=== PATIENT | female | born 1990 | race Caucasian/White ===

== ENCOUNTER 2018-07-04 20:21 | Emergency (ER) | payer MEDICAID ==
[2018-07-04 22:20] LABS: CHLORIDE,CL 108 mmol/L (98-107); SODIUM,NA 140 mmol/L (136-145)
--- NOTE | 2018-07-04 22:48 | EDM.PDOC ---
ED HPI GENERAL MEDICAL PROBLEM - General Chief Complaint: Abdominal Pain Stated Complaint: CHEST AND STOMACH PAIN Time Seen by Provider: 07/04/18 22:47 Source of Information: Reports: Patient History Limitations: Reports: No Limitations - History of Present Illness INITIAL COMMENTS - FREE TEXT/NARRATIVE: HISTORY AND PHYSICAL: History of present illness: 27-year-old female presenting MRSA department with chief complaint of right upper quadrant pain starting this evening. Patient states that after dinner tonight around 5:30 she began to have some heartburn as well as right upper quadrant pain. "Feels like a balloon is under my right rib cage". She's had this pain before. She recently had a right upper quadrant ultrasound secondary to gallbladder issues. Her first initial symptoms started approximately 2 weeks ago. She denies any fever but does felt some chills. She reports some nausea but no vomiting. She denies cough, sore throat, chest pain, palpitations, shortness of breath, single episodes, focal neurologic deficits. On exam patient is acutely tender in the right upper quadrant. Review of systems: As per history of present illness and below otherwise all systems reviewed and negative. Past medical history: As per history of present illness and as reviewed below otherwise noncontributory. Surgical history: As per history of present illness and as reviewed below otherwise noncontributory. Social history: No reported history of drug or alcohol abuse. Family history: As per history of present illness and as reviewed below otherwise noncontributory. Physical exam: HEENT: Atraumatic, normocephalic, pupils reactive, negative for conjunctival pallor or scleral icterus, mucous membranes moist, throat clear, neck supple, nontender, trachea midline. Lungs: Clear to auscultation, breath sounds equal bilaterally, chest nontender. Heart: S1S2, regular, negative for clicks, rubs, or JVD. Abdomen: Soft, nondistended, right upper quadrant pain. Negative for masses or hepatosplenomegaly. Negative for costovertebral tenderness. Pelvis: Stable nontender. Genitourinary: Deferred. Rectal: Deferred. Extremities: Atraumatic, negative for cords or calf pain. Neurovascular unremarkable. Neuro: Awake, alert, oriented. Cranial nerves II through XII unremarkable. Cerebellum unremarkable. Motor and sensory unremarkable throughout. Exam nonfocal. Diagnostics: CBC, CMP, UA/UC, CT abdomen pelvis Therapeutics: 1 L normal saline, 2 mg IV morphine Impression: Abdominal pain Biliary colic Cholelithiasis Plan: CBC, CMP were unremarkable. CT of the abdomen did show radiolucent stones throughout the gallbladder. There is trace intrahepatic biliary ductal dilatation. Radiology did recommend possible outpatient MRCP for helpful in diagnosis. In addition there was a soft tissue nodule in the inferior lateral left breast measuring 2.2 cm. Recommended outpatient diagnostic mammography and/ or ultrasound. I did discuss findings with and we scheduled her to be seen by neurosurgery next week as soon as possible. I also gave the patient prescription for Dodson 5 #10 and instructed to return to emergency department she had any new or worsening symptoms. Definitive disposition and diagnosis as appropriate pending reevaluation and review of above. right upper quadrant pain Pain Score (Numeric/FACES): 7 - Related Data Allergies Allergy/AdvReac Type Severity Reaction Status Date / Time No Known Allergies Allergy Verified 07/04/18 21:44 Home Meds: Home Meds . 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: - Infectious Disease History Infectious Disease History: Reports: Chicken Pox - Past Surgical History Female Surgical History: Reports: Section, Tubal Ligation Social & Family History - Family History Family Medical History: Noncontributory - Tobacco Use Smoking Status *Q: Current Every Day Smoker Years of Tobacco use: 11 Packs/Tins Daily: 0.5 - Alcohol Use Days Per Week of Alcohol Use: 1 Number of Drinks Per Day: 2 Total Drinks Per Week: 2 - Recreational Drug Use Recreational Drug Use: No ED ROS GENERAL - Review of Systems Review Of Systems: ROS reveals no pertinent complaints other than HPI. ED EXAM, GENERAL - Physical Exam Exam: See Below Course - Vital Signs Last Recorded V/S: Last Vital Signs Temp 97.2 F 07/04/18 21:45 Pulse 75 07/04/18 22:47 Resp 18 07/04/18 22:47 BP 123/87 07/04/18 22:47 Pulse Ox 98 07/04/18 22:47 - Orders/Labs/Meds Orders: Active Orders 24 hr Category Date Time Status Abdomen Pelvis w Cont [CT] Stat Exams 07/04/18 21:44 Taken CULTURE URINE [RM] Stat Lab 07/04/18 22:18 Received Labs: Laboratory Tests 09/07/04/18 07/04/18 Range/Units 21:51 21:51 22:18 WBC 10.35 (4.0-11.0) K/uL RBC 4.09 L (4.30-5.90) M/uL Hgb 8.4 L (12.0-16.0) g/dL Hct 27.9 L (36.0-46.0) % MCV 68.2 L (80.0-98.0) fL MCH 20.5 L (27.0-32.0) pg MCHC 30.1 L (31.0-37.0) g/dL RDW Std Deviation 43.4 (28.0-62.0) fl RDW Coeff of Mel 18 H (11.0-15.0) % Plt Count 384 (150-400) K/uL MPV 9.50 (7.40-12.00) fL Neut % (Auto) 52.8 (48.0-80.0) % Lymph % (Auto) 37.6 (16.0-40.0) % [place] % (Auto) 8.0 (0.0-15.0) % Eos % (Auto) 1.3 (0.0-7.0) % Baso % (Auto) 0.3 (0.0-1.5) % Neut # (Auto) 5.5 (1.4-5.7) K/uL Lymph # (Auto) 3.9 H (0.6-2.4) K/uL [place] # (Auto) 0.8 (0.0-0.8) K/uL Eos # (Auto) 0.1 (0.0-0.7) K/uL Baso # (Auto) 0.0 (0.0-0.1) K/uL Nucleated RBC % 0.0 /100WBC Nucleated RBCs # 0 K/uL Sodium 140 (136-145) mmol/L Potassium 3.7 (3.5-5.1) mmol/L Chloride 108 H (98-107) mmol/L Carbon Dioxide 24.0 (21.0-32.0) mmol/L BUN 9 (7.0-18.0) mg/dL Creatinine 0.6 (0.6-1.0) mg/dL Est Cr Clr Drug Dosing 138.17 mL/min Estimated GFR (MDRD) > 60.0 ml/min Glucose 87 (74-106) mg/dL Calcium 8.2 L (8.5-10.1) mg/dL Total Bilirubin 0.2 (0.2-1.0) mg/dL AST 16 (15-37) IU/L ALT 32 (14-63) IU/L Alkaline Phosphatase 105 (46-116) U/L Total Protein 7.0 (6.4-8.2) g/dL Albumin 3.4 (3.4-5.0) g/dL Globulin 3.6 H (2.0-3.5) g/dL Albumin/Globulin Ratio 0.9 L (1.3-2.8) Urine Color YELLOW Urine Appearance SLT CLOUDY Urine pH 5.5 (5.0-8.0) Ur Specific [place] 1.020 (1.001-1.035) Urine Protein NEGATIVE (NEGATIVE) mg/dL Urine Glucose (UA) NEGATIVE (NEGATIVE) mg/dL Urine Ketones NEGATIVE (NEGATIVE) mg/dL Urine Occult Blood MODERATE (NEGATIVE) Urine Nitrite NEGATIVE (NEGATIVE) Urine Bilirubin NEGATIVE (NEGATIVE) Urine Urobilinogen 0.2 (<2.0) EU/dL Ur Leukocyte Esterase NEGATIVE (NEGATIVE) Urine RBC 20-30 (0-2/HPF) Urine WBC 1-3 (0-5/HPF) Ur Epithelial Cells FEW (NONE-FEW) Amorphous Sediment FEW (NEGATIVE) Urine Bacteria FEW (NEGATIVE) Urine Mucus FEW (NONE-MOD) Urine HCG, Qual (NEGATIVE) 07/04/18 Range/Units 22:18 WBC (4.0-11.0) K/uL RBC (4.30-5.90) M/uL Hgb (12.0-16.0) g/dL Hct (36.0-46.0) % MCV (80.0-98.0) fL MCH (27.0-32.0) pg MCHC (31.0-37.0) g/dL RDW Std Deviation (28.0-62.0) fl RDW Coeff of Mel (11.0-15.0) % Plt Count (150-400) K/uL MPV (7.40-12.00) fL Neut % (Auto) (48.0-80.0) % Lymph % (Auto) (16.0-40.0) % [place] % (Auto) (0.0-15.0) % Eos % (Auto) (0.0-7.0) % Baso % (Auto) (0.0-1.5) % Neut # (Auto) (1.4-5.7) K/uL Lymph # (Auto) (0.6-2.4) K/uL [place] # (Auto) (0.0-0.8) K/uL Eos # (Auto) (0.0-0.7) K/uL Baso # (Auto) (0.0-0.1) K/uL Nucleated RBC % /100WBC Nucleated RBCs # K/uL Sodium (136-145) mmol/L Potassium (3.5-5.1) mmol/L Chloride (98-107) mmol/L Carbon Dioxide (21.0-32.0) mmol/L BUN (7.0-18.0) mg/dL Creatinine (0.6-1.0) mg/dL Est Cr Clr Drug Dosing mL/min Estimated GFR (MDRD) ml/min Glucose (74-106) mg/dL Calcium (8.5-10.1) mg/dL Total Bilirubin (0.2-1.0) mg/dL AST (15-37) IU/L ALT (14-63) IU/L Alkaline Phosphatase (46-116) U/L Total Protein (6.4-8.2) g/dL Albumin (3.4-5.0) g/dL Globulin (2.0-3.5) g/dL Albumin/Globulin Ratio (1.3-2.8) Urine Color Urine Appearance Urine pH (5.0-8.0) Ur Specific [place] (1.001-1.035) Urine Protein (NEGATIVE) mg/dL Urine Glucose (UA) (NEGATIVE) mg/dL Urine Ketones (NEGATIVE) mg/dL Urine Occult Blood (NEGATIVE) Urine Nitrite (NEGATIVE) Urine Bilirubin (NEGATIVE) Urine Urobilinogen (<2.0) EU/dL Ur Leukocyte Esterase (NEGATIVE) Urine RBC (0-2/HPF) Urine WBC (0-5/HPF) Ur Epithelial Cells (NONE-FEW) Amorphous Sediment (NEGATIVE) Urine Bacteria (NEGATIVE) Urine Mucus (NONE-MOD) Urine HCG, Qual NEGATIVE (NEGATIVE) Meds: Medications Discontinued Medications Generic Name Dose Route Start Last Admin Trade Name Gaurav PRN Reason Stop Dose Admin Sodium Chloride 1,000 mls @ 999 mls/hr 07/04/18 23:00 07/04/18 23:36 Normal Saline IV 07/05/18 00:00 999 mls/hr STAT ONE Administration Iopamidol 100 ml 07/05/18 00:18 07/05/18 00:19 Isovue Multipack-370 (76%) IVPUSH 07/05/18 00:19 100 ml ONETIME ONE Administration Morphine Sulfate 2 mg 07/04/18 23:00 07/04/18 23:36 Morphine IVPUSH 07/04/18 23:01 2 mg ONETIME ONE Administration Departure - Departure Time of Disposition: 01:32 Disposition: Home, Self-Care 01 Condition: Good Clinical Impression: Biliary colic Cholelithiasis Qualifiers: Cholelithiasis location: gallbladder Cholecystitis presence: without cholecystitis Biliary obstruction: without biliary obstruction Qualified Code(s) : K80.20 - Calculus of gallbladder without cholecystitis without obstruction - Discharge Information Referrals: PCP,None [Primary Care Provider] - Forms: ED Department Discharge Additional Instructions: My general discharge The following information is given to patients seen in the emergency department who are being discharged to home. This information is to outline your options for follow-up care. We provide all patients seen in our emergency department with a follow-up referral. The need for follow-up, as well as the timing and circumstances, are variable depending upon the specifics of your emergency department visit. If you don't have a primary care physician on staff, we will provide you with a referral. We always advise you to contact your personal physician following an emergency department visit to inform them of the circumstance of the visit and for follow-up with them and/or the need for any referrals to a consulting specialist. The emergency department will also refer you to a specialist when appropriate. This referral assures that you have the opportunity for follow-up care with a specialist. All of these measure are taken in an effort to provide you with optimal care, which includes your follow-up. Under all circumstances we always encourage you to contact your private physician who remains a resource for coordinating your care. When calling for follow-up care, please make the office aware that this follow-up is from your recent emergency room visit. If for any reason you are refused follow-up, please contact the [facility] Emergency Department at and asked to speak to the emergency department charge nurse. My General Surgery [facility] Specialty Care - General Surgery Professional Building [address] [place] [address], [address] [place] [address] Please call the number on Friday to schedule an appointment with a general surgeon. Be sure to tell them that you were seen in the emergency department and they wish for you to be seen as soon as also. Take medication as prescribed. Return emergency department if any new or worsening symptoms. - My Orders Last 24 Hours: My Active Orders 07/04/18 21:44 Abdomen Pelvis w Cont [CT] Stat 07/04/18 22:18 CULTURE URINE [RM] Stat - Assessment/Plan Last 24 Hours: My Active Orders 07/04/18 21:44 Abdomen Pelvis w Cont [CT] Stat 07/04/18 22:18 CULTURE URINE [RM] Stat
[2018-07-04] MEDS ORDERED: Morphine 2 MG/ML Syringe IVPUSH ONE (23:00)
[2018-07-04] MEDS ORDERED: Sodium Chloride 0.9% 1,000 ML IV ONE (23:00)
[2018-07-05] MEDS ORDERED: Iopamidol 755 MG/ML 200 ML Multipack Bottle IVPUSH ONE (00:18)
--- NOTE | 2018-07-06 15:44 | CT ---
EXAM DATE: 07/04/18 PATIENT'S AGE: 27 Patient: ISAAC ELDRIDGE Facility: [place], [place] Site Site : 1990 Study: CT Abdomen/Pelvis w/ cont. [id number]/30/2018 12:26:17 AM Ordering Physician: Naren Chiu Final Report: INDICATION: Abdominal pain for 2 weeks. Worsening tonight. TECHNIQUE: CT Abdomen and pelvis with i.v. contrast. Coronal and sagittal reformats were obtained. CONTRAST: 100 mL Isovue 370 COMPARISON: None FINDINGS: Lower chest: Unremarkable. There is a soft tissue nodule in the inferior lateral left breast measuring 2.2 cm. Liver: Unremarkable. Spleen: Unremarkable. Pancreas: Unremarkable. Gallbladder: Radiolucent gallstones seen throughout the gallbladder. Trace intrahepatic biliary ductal dilatation is seen. Kidney: Moderate dilatation of the renal pelvis is noted bilaterally without evidence of caliectasis. This is most likely due to extrarenal pelves. Adrenal: Unremarkable. Bowel: Unremarkable. The appendix is normal in appearance and size. Vascular: Unremarkable. Lymph: Unremarkable. Peritoneum: Unremarkable. No pneumoperitoneum is seen. No significant ascites is noted. Pelvis: Bilateral tubal ligation clips is present within the pelvis. Soft tissue: Unremarkable. Bone: Unremarkable for age. IMPRESSIONS: 1. Radiolucent gallstones seen throughout the gallbladder. 2. Trace intrahepatic biliary ductal dilatation is seen. Assessment with outpatient MRCP may be helpful. 3. There is a soft tissue nodule in the inferior lateral left breast measuring 2.2 cm. Correlation with outpatient diagnostic mammogram and/or ultrasound recommended. Dictated by Rocael Adams MD @ 07/05/2018 12:39:50 AM Please note that all CT scans at this facility use dose modulation, iterative reconstruction, and/or weight-based dosing when appropriate to reduce radiation dose to as low as reasonably achievable. Dictated by: Rocael Adams MD @ 07/05/2018 00:39:53 (Electronic Signature) Report Signed by Proxy. [facility]IT[facility]
== END 2018-07-05 01:50 | disposition home or self-care (01) ==
LOC: MW.ED 20:21
DX: K80.50 Calculus of bile duct without cholangitis or cholecystitis without obstruction (principal); K80.20 Calculus of gallbladder without cholecystitis without obstruction; F17.210 Nicotine dependence, cigarettes, uncomplicated
CPT/HCPCS: 36415; 74177; 80053; 81001; 81025; 85025; 87086; 96361; 96374; 99284; J2270; J7040; Q9967; 99283

== ENCOUNTER 2018-07-09 17:09 | Emergency (ER) | payer MEDICAID ==
[2018-07-09] MEDS ORDERED: Hyoscyamine 0.125 MG Tab.SL SL ONE (17:30)
--- NOTE | 2018-07-09 17:33 | EDM.PDOC ---
ED HPI GENERAL MEDICAL PROBLEM - General Chief Complaint: Abdominal Pain Stated Complaint: PAIN UNDER RT BREAST AND DOWN BACK SHOULDER BLADES Time Seen by Provider: 07/09/18 17:27 Source of Information: Reports: Patient History Limitations: Reports: No Limitations - History of Present Illness INITIAL COMMENTS - FREE TEXT/NARRATIVE: History of present illness: []Patient was recently diagnosed with gallbladder disease and is scheduled to have her gallbladder removed by Dr. Dorado next week. 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 Today she did eat some cheese and likely exacerbated her pain. She denies any fevers, chills, nausea, vomiting or diarrhea. Review of systems: As per history of present illness and below otherwise all systems reviewed and negative. Past medical history: As per history of present illness and as reviewed below otherwise noncontributory. Surgical history: As per history of present illness and as reviewed below otherwise noncontributory. Social history: No reported history of drug or alcohol abuse. Family history: As per history of present illness and as reviewed below otherwise noncontributory. Physical exam: General: Well developed, well nourished in NAD HEENT: Atraumatic, normocephalic, pupils reactive, negative for conjunctival pallor or scleral icterus, mucous membranes moist, throat clear, neck supple, nontender, trachea midline. Lungs: Clear to auscultation, breath sounds equal bilaterally, chest nontender. Heart: S1S2, regular, negative for clicks, rubs, or JVD. Abdomen: Soft, nondistended, mild diffuse tenderness with increased tenderness in the right upper quadrant without rebound or guarding. Negative for masses or hepatosplenomegaly. Negative for costovertebral tenderness. Pelvis: Stable nontender. Genitourinary: Deferred. Rectal: Deferred. Extremities: Atraumatic, negative for cords or calf pain. Neurovascular unremarkable. Neuro: Awake, alert, oriented. Cranial nerves II through XII unremarkable. Cerebellum unremarkable. Motor and sensory unremarkable throughout. Exam nonfocal. Skin:warm and dry Diagnostics: CBC, chemistry, lipase Therapeutics: Hyoscyamine ED Course: Unremarkable Impression: Cholelithiasis, stable anemia Prescriptions: Hyoscyamine Plan: Follow-up with Dr. Dorado return if symptoms worsen, burning, fevers or other concerns occur. Take an iron supplement Definitive disposition and diagnosis as appropriate pending reevaluation and review of above. Abdomen Pain Score (Numeric/FACES): 7 - Related Data Allergies Allergy/AdvReac Type Severity Reaction Status Date / Time No Known Allergies Allergy Verified 07/09/18 17:28 Home Meds: Home Meds Hyoscyamine [Hyomax-SL] 0.125 mg SL Q4H PRN #20 tab.sl 07/09/18 [Rx] Past Medical History [employer] History: Reports: - Infectious Disease History Infectious Disease History: Reports: Chicken Pox - Past Surgical History Female Surgical History: Reports: Section, Tubal Ligation Social & Family History - Family History Family Medical History: Noncontributory ED ROS GENERAL - Review of Systems Review Of Systems: ROS reveals no pertinent complaints other than HPI. ED EXAM, GI/ABD - Physical Exam Exam: See Below (See history of present illness) Course - Vital Signs Last Recorded V/S: Last Vital Signs Temp 97.8 F 07/09/18 17:22 Pulse 85 07/09/18 17:22 Resp 20 07/09/18 17:22 BP 122/85 07/09/18 17:22 Pulse Ox 97 07/09/18 17:22 - Orders/Labs/Meds Labs: Laboratory Tests 07/09/18 07/09/18 Range/Units 17:42 17:42 WBC 7.38 (4.0-11.0) K/uL RBC 4.18 L (4.30-5.90) M/uL Hgb 8.4 L (12.0-16.0) g/dL Hct 28.5 L (36.0-46.0) % MCV 68.2 L (80.0-98.0) fL MCH 20.1 L (27.0-32.0) pg MCHC 29.5 L (31.0-37.0) g/dL RDW Std Deviation 44.1 (28.0-62.0) fl RDW Coeff of Mel 18 H (11.0-15.0) % Plt Count 400 (150-400) K/uL MPV 9.30 (7.40-12.00) fL Neut % (Auto) 56.8 (48.0-80.0) % Lymph % (Auto) 34.3 (16.0-40.0) % [place] % (Auto) 7.0 (0.0-15.0) % Eos % (Auto) 1.5 (0.0-7.0) % Baso % (Auto) 0.4 (0.0-1.5) % Neut # (Auto) 4.2 (1.4-5.7) K/uL Lymph # (Auto) 2.5 H (0.6-2.4) K/uL [place] # (Auto) 0.5 (0.0-0.8) K/uL Eos # (Auto) 0.1 (0.0-0.7) K/uL Baso # (Auto) 0.0 (0.0-0.1) K/uL Nucleated RBC % 0.0 /100WBC Nucleated RBCs # 0 K/uL Sodium 141 (136-145) mmol/L Potassium 3.9 (3.5-5.1) mmol/L Chloride 107 (98-107) mmol/L Carbon Dioxide 23.6 (21.0-32.0) mmol/L BUN 14 (7.0-18.0) mg/dL Creatinine 0.6 (0.6-1.0) mg/dL Est Cr Clr Drug Dosing 138.17 mL/min Estimated GFR (MDRD) > 60.0 ml/min Glucose 94 (74-106) mg/dL Calcium 8.8 (8.5-10.1) mg/dL Total Bilirubin 0.2 (0.2-1.0) mg/dL AST 16 (15-37) IU/L ALT 28 (14-63) IU/L Alkaline Phosphatase 88 (46-116) U/L Total Protein 7.2 (6.4-8.2) g/dL Albumin 3.5 (3.4-5.0) g/dL Globulin 3.7 H (2.0-3.5) g/dL Albumin/Globulin Ratio 1.0 L (1.3-2.8) Lipase 87 (73-393) U/L Meds: Medications Discontinued Medications Generic Name Dose Route Start Last Admin Trade Name Freq PRN Reason Stop Dose Admin Hyoscyamine 0.125 mg 07/09/18 17:30 07/09/18 17:49 Hyomax-Sl SL 07/09/18 17:31 0.125 mg ONETIME ONE Administration Departure - Departure Time of Disposition: 18:15 Disposition: Home, Self-Care 01 Condition: Good Clinical Impression: Biliary colic Cholelithiasis Qualifiers: Cholelithiasis location: gallbladder Cholecystitis presence: without cholecystitis Biliary obstruction: without biliary obstruction Qualified Code(s) : K80.20 - Calculus of gallbladder without cholecystitis without obstruction - Discharge Information *PRESCRIPTION DRUG MONITORING PROGRAM REVIEWED*: No *COPY OF PRESCRIPTION DRUG MONITORING REPORT IN PATIENT GILBERT: No Prescriptions: Hyoscyamine [Hyomax-SL] 0.125 mg SL Q4H PRN #20 tab.sl PRN Reason: Pain Instructions: Cholelithiasis Referrals: PCP,None [Primary Care Provider] - Forms: ED Department Discharge Additional Instructions: The following information is given to patients seen in the emergency department who are being discharged to home. This information is to outline your options for follow-up care. We provide all patients seen in our emergency department with a follow-up referral. The need for follow-up, as well as the timing and circumstances, are variable depending upon the specifics of your emergency department visit. If you don't have a primary care physician on staff, we will provide you with a referral. We always advise you to contact your personal physician following an emergency department visit to inform them of the circumstance of the visit and for follow-up with them and/or the need for any referrals to a consulting specialist. The emergency department will also refer you to a specialist when appropriate. This referral assures that you have the opportunity for follow-up care with a specialist. All of these measure are taken in an effort to provide you with optimal care, which includes your follow-up. Under all circumstances we always encourage you to contact your private physician who remains a resource for coordinating your care. When calling for follow-up care, please make the office aware that this follow-up is from your recent emergency room visit. If for any reason you are refused follow-up, please contact the [facility] Emergency Department at and asked to speak to the emergency department charge nurse. Take meds as directed also take an iron supplement for your anemia. Call Dr. Dorado for Follow-up [facility] Specialty Care - General Surgery Professional [address], [address] [place] [address]
[2018-07-09 18:08] LABS: CHLORIDE,CL 107 mmol/L (98-107); SODIUM,NA 141 mmol/L (136-145)
== END 2018-07-09 18:25 | disposition home or self-care (01) ==
LOC: MW.ED 17:09
DX: K80.70 Calculus of gallbladder and bile duct without cholecystitis without obstruction (principal); D64.9 Anemia, unspecified
CPT/HCPCS: 36415; 80053; 83690; 85025; 99283; A9270

== ENCOUNTER 2019-03-02 08:01 | Day surgery (SDC) | payer MEDICAID ==
[2019-03-01 10:59] LABS: CHLORIDE,CL 107 mmol/L (98-107); SODIUM,NA 141 mmol/L (136-145)
[2019-03-02] MEDS ORDERED: Midazolam 1 MG/ML 2 ML SDV ONE (08:42)
[2019-03-02] MEDS ORDERED: Propofol 200 MG/20 ML SDV ONE (08:42)
[2019-03-02] MEDS ORDERED: Lidocaine 2% 5 ML SDV ONE (08:43)
[2019-03-02] MEDS ORDERED: Rocuronium 100 MG/10 ML Syringe ONE (08:43)
[2019-03-02] MEDS ORDERED: Ketorolac 30 MG/ML SDV ONE ×2 (08:43→13:04)
[2019-03-02] MEDS ORDERED: Ondansetron 4 MG/2 ML SDV ONE (08:43)
[2019-03-02] MEDS ORDERED: Dexamethasone 4 MG/ML 5 ML MDV ONE (08:43)
[2019-03-02] MEDS ORDERED: fentaNYL 100 MCG/2 ML SDV ONE ×2 (08:49→12:46)
--- NOTE | 2019-03-02 09:06 | PCM.PREANE ---
Preanesthetic Assessment - Anesthesia/Transfusion/Family Hx Anesthesia History: Prior Anesthesia Without Reaction Family History of Anesthesia Reaction: No Transfusion History: No Prior Transfusion(s) Intubation History: Unknown - Review of Systems General: No Symptoms Pulmonary: No Symptoms Cardiovascular: No Symptoms Gastrointestinal: No Symptoms Neurological: No Symptoms Other: Reports: None - Physical Assessment NPO Status Date: 03/01/19 O2 Sat by Pulse Oximetry: 98 Respiratory Rate: 16 Vital Signs: Last Vital Signs Temp 97.5 F 03/02/19 08:21 Pulse 67 03/02/19 08:21 Resp 16 03/02/19 08:21 BP 136/84 03/02/19 08:21 Pulse Ox 98 03/02/19 08:21 Height: 5 ft 7 in Weight: 90.265 kg ASA Class: 2 Mental Status: Alert & Oriented x3 Airway Class: Mallampati = 2 Dentition: Reports: [place](s) (central maxillary incisors) ROM/Head Extension: Full Lungs: Clear to Auscultation, Normal Respiratory Effort Cardiovascular: Regular Rate, Regular Rhythm - Lab Values: Laboratory Last Values WBC 7.60 K/uL (4.0-11.0) 03/01/19 10:30 RBC 5.23 M/uL (4.30-5.90) 03/01/19 10:30 Hgb 12.4 g/dL (12.0-16.0) 03/01/19 10:30 Hct 39.9 % (36.0-46.0) 03/01/19 10:30 MCV 76.3 fL (80.0-98.0) L 03/01/19 10:30 MCH 23.7 pg (27.0-32.0) L 03/01/19 10:30 MCHC 31.1 g/dL (31.0-37.0) 03/01/19 10:30 Plt Count 265 K/uL (150-400) 03/01/19 10:30 MPV 9.50 fL (7.40-12.00) 03/01/19 10:30 Nucleated RBC % 0.0 /100WBC 03/01/19 10:30 Nucleated RBCs # 0 K/uL 03/01/19 10:30 Sodium 141 mmol/L (136-145) 03/01/19 10:30 Potassium 4.1 mmol/L (3.5-5.1) 03/01/19 10:30 Chloride 107 mmol/L (98-107) 03/01/19 10:30 Carbon Dioxide 25.5 mmol/L (21.0-32.0) 03/01/19 10:30 BUN 10 mg/dL (7.0-18.0) 03/01/19 10:30 Creatinine 0.7 mg/dL (0.6-1.0) 03/01/19 10:30 Est Cr Clr Drug Dosing 117.39 mL/min 03/01/19 10:30 Estimated GFR (MDRD) > 60.0 ml/min 03/01/19 10:30 Glucose 99 mg/dL (74-106) 03/01/19 10:30 Calcium 8.6 mg/dL (8.5-10.1) 03/01/19 10:30 HCG, Qual NEGATIVE (NEG) 03/01/19 10:30 Blood Type A POSITIVE 03/01/19 10:30 Antibody Screen NEGATIVE 03/01/19 10:30 - Allergies Allergies/Adverse Reactions: Allergies Allergy/AdvReac Type Severity Reaction Status Date / Time No Known Allergies Allergy Verified 03/02/19 08:28 - Blood Blood Available: No - Anesthesia Plan Pre-Op Medication Ordered: Other (scop) - Acknowledgements Anesthesia Type Planned: General Anesthesia Pt an Appropriate Candidate for the Planned Anesthesia: Yes Alternatives and Risks of Anesthesia Discussed w Pt/Guardian: Yes Pt/Guardian Understands and Agrees with Anesthesia Plan: Yes Additional Comments: anes prob list: hx of anemia- Hb now 12 PLAN: get PreAnesthesia Questionnaire HEENT History: Reports: None Cardiovascular History: Reports: None Respiratory History: Reports: None Gastrointestinal History: Reports: Cholelithiasis Other Gastrointestinal History: symptomatic cholelithiasis Genitourinary History: Reports: None COMMERCIAL GLAZIER History: Reports: Musculoskeletal History: Reports: None Neurological History: Reports: None Psychiatric History: Reports: None Endocrine/Metabolic History: Reports: Obesity/BMI 30+ Hematologic History: Reports: Anemia, Blood Transfusion(s) Immunologic History: Reports: None Oncologic (Cancer) History: Reports: None Dermatologic History: Reports: None - Infectious Disease History Infectious Disease History: Reports: Chicken Pox - Past Surgical History Head Surgeries/Procedures: Reports: None HEENT Surgical History: Reports: None Cardiovascular Surgical History: Reports: None Respiratory Surgical History: Reports: None GI Surgical History: Reports: Cholecystectomy Female Surgical History: Reports: Section, Tubal Ligation Endocrine Surgical History: Reports: None Neurological Surgical History: Reports: None Musculoskeletal Surgical History: Reports: None Oncologic Surgical History: Reports: None Dermatological Surgical History: Reports: None - SUBSTANCE USE Smoking Status *Q: Current Every Day Smoker Tobacco Use Within Last Twelve Months: Cigarettes Recreational Drug Use History: No - HOME MEDS Home Medications: Home Meds Herbal Supplements 1 dose PO ASDIRECTED 02/24/19 [History] Iron 1 tab PO DAILY 02/24/19 [History] - CURRENT (IN HOUSE) MEDS Current Meds: Current Medications Discontinued Medications Dexamethasone (Dexamethasone) Confirm Administered Dose 20 mg .ROUTE .STK-MED ONE Stop: 03/02/19 08:44 Fentanyl (Sublimaze) Confirm Administered Dose 100 mcg .ROUTE .STK-MED ONE Stop: 03/02/19 08:50 Ketorolac Tromethamine (Toradol) Confirm Administered Dose 30 mg .ROUTE .STK- MED ONE Stop: 03/02/19 08:44 Lidocaine (Xylocaine-Mpf 2%) Confirm Administered Dose 5 ml .ROUTE .STK-MED ONE Stop: 03/02/19 08:44 Midazolam HCl (Versed 1 Mg/Ml) Confirm Administered Dose 2 mg .ROUTE .STK-MED ONE Stop: 03/02/19 08:43 Ondansetron HCl (Zofran) Confirm Administered Dose 4 mg .ROUTE .STK-MED ONE Stop: 03/02/19 08:44 Propofol (Diprivan 20 Ml) Confirm Administered Dose 200 mg .ROUTE .STK-MED ONE Stop: 03/02/19 08:43 Rocuronium [place] (Zemuron) Confirm Administered Dose 100 mg .ROUTE .STK-MED ONE Stop: 03/02/19 08:44 Succinylcholine Chloride (Succinylcholine Chloride) Confirm Administered Dose 200 mg .ROUTE .STK-MED ONE Stop: 03/02/19 08:44
[2019-03-02] MEDS ORDERED: fentaNYL 100 MCG/2 ML SDV IVPUSH PRN (09:08)
[2019-03-02] MEDS ORDERED: HYDROmorphone 2 MG/ML SDV IVPUSH PRN (09:08)
[2019-03-02] MEDS ORDERED: Scopolamine 1.5 MG Transdermal Patch TRDERM PRN (09:09)
[2019-03-02] MEDS ORDERED: Ondansetron 4 MG/2 ML SDV IVPUSH PRN ×2 (09:09→13:16)
[2019-03-02] MEDS ORDERED: Fluorescein 5 ML Vial ONE (09:10)
[2019-03-02] MEDS ORDERED: Methylene Blue 50 MG/10 ML Ampule ONE (09:10)
[2019-03-02] MEDS ORDERED: Bupivacaine 0.25% 10 ML SDV ONE (09:11)
[2019-03-02] MEDS ORDERED: Bupivacaine 0.5% 10 ML SDV ONE (10:32)
[2019-03-02] MEDS ORDERED: ceFAZolin 1 GM Vial ONE (10:48)
[2019-03-02] MEDS ORDERED: Phenylephrine/Normal Saline 100 MCG/ML 10 ML Syringe ONE (11:14)
[2019-03-02] MEDS ORDERED: Octyl 2-Cyanoacrylate 1 Tube ONE (11:14)
--- NOTE | 2019-03-02 11:39 | PCM.OPNOTE ---
- General Post-Op/Procedure Note Date of Surgery/Procedure: 03/02/19 Operative Procedure(s): Excision left breast mass Findings: 4 x 2 x 1 cm mass in the left breast at the 3 o'clock position. Clips left in operative site. Pre Op Diagnosis: fibroadenoma Post-Op Diagnosis: same Anesthesia Technique: General ET Tube Primary Surgeon: Tiana Koroma EBL in mLs: 2 Condition: Good
[2019-03-02] MEDS ORDERED: HYDROmorphone 2 MG/ML Syringe ONE (11:47)
[2019-03-02] MEDS ORDERED: Glycopyrrolate 0.2 MG/ML SDV ONE (12:35)
[2019-03-02] MEDS ORDERED: Neostigmine Methylsulfate 1 MG/ML 5 ML Syringe ONE (12:35)
--- NOTE | 2019-03-02 12:36 | OR ---
SURGEON: TIANA KOROMA MD DATE OF PROCEDURE: 03/02/2019 PREOPERATIVE DIAGNOSIS: Left breast fibroadenoma. POSTOPERATIVE DIAGNOSIS: Left breast fibroadenoma. PROCEDURE PERFORMED: Excision of left breast mass. PRIMARY SURGEON: Tiana Koroma MD. ANESTHESIA: General endotracheal anesthesia. FLUIDS: See anesthesia record. ESTIMATED BLOOD LOSS: 2 mL. FINDINGS: 4 x 2 x 1 cm mass in the left breast at the 3 o'clock position. Clips placed in the operative bed. COMPLICATIONS: None. INDICATIONS: The patient is a 28-year-old female who presents with a painful left breast mass. This has been imaged and found to be a fibroadenoma. She has had serial ultrasounds that show stability of the lesion, however, it is causing pain. Due to this, the decision was made to excise this lesion. The patient and I discussed the procedure, expected perioperative course, and risks including bleeding, infection, damage to surrounding structures or the need for further operation should the pathology return is something other than a fibroadenoma. The patient verbalized understanding and wishes to proceed. PROCEDURE IN DETAIL: The patient was brought into the operating room and placed on the OR table in supine position. A time-out was completed verifying the patient's name, age, date of , allergies, and procedure to be performed. General endotracheal anesthesia was induced. The patient was then put into lithotomy position with both arms tucked for the laparoscopic-assisted hysterectomy that she will be undergoing after my portion of the procedure is done. The left breast was prepped and draped in usual standard fashion. I identified the mass by palpation. I anesthetized the area overlying the mass with 0.5% Marcaine plain. A 3 cm incision was made using a 15 blade over the mass. Cautery was used to dissect down through the level of the subcutaneous fat to the breast tissue. I grasped the mass with an Allis and elevated it. Using electrocautery, I dissected it around the mass. At one point, the Allis withdrew the mass and a small piece of tissue came off it. This appeared cartilaginous. It was placed on the back table to be sent with the main specimen. I was then able to elevate the mass and undermined the lesion using electrocautery. It was placed on the back table and measured 4 x 2 x 1 cm in size. It was sent to pathology with the other piece of tissue labeled as left breast mass. I then irrigated the wound with normal saline. Two medium clips were placed along the posterior margin of the excision site. Electrocautery was used to achieve hemostasis. I then closed the wound with interrupted 3-0 Vicryl sutures in the subcutaneous fat layer. The skin was closed with a running 4-0 Monocryl stitch. Dermabond and sterile dressings were applied. The case was then turned over to Dr. Amy Montemayor for the hysterectomy portion of the case. See her notes for further details. ALBERT GREGG /[id number]
[2019-03-02] MEDS ORDERED: Furosemide 40 MG/4 ML VIAL ONE (12:39)
[2019-03-02] MEDS ORDERED: Morphine 4 MG/ML Syringe IVPUSH PRN (13:16)
[2019-03-02] MEDS ORDERED: Acetaminophen/oxyCODONE 325-5 MG Tab PO PRN ×2 (13:16)
[2019-03-02] MEDS ORDERED: Ketorolac 30 MG/ML SDV IVPUSH ONE (13:16)
[2019-03-02] MEDS ORDERED: Promethazine 25 MG/ML SDV IM PRN (13:16)
--- NOTE | 2019-03-02 13:16 | PCM.OPNOTE ---
- General Post-Op/Procedure Note Date of Surgery/Procedure: 03/02/19 Operative Procedure(s): laparoscopically assisted vaginal hysterectomy bilateral salpingectomy and cystoscopy Findings: prior Filschie clips on tubes. Otherwise normal appearing pelvis. Pre Op Diagnosis: menorrhagia with anemia Post-Op Diagnosis: Same Anesthesia Technique: General ET Tube Primary Surgeon: Amy Montemayor Secondary Surgeon: Margarita Solorzano Anesthesia Provider: Kaylyn Monroy Knotting Machine Operator Portable: Mally Real Pathology: uterus and bilateral fallopian tubes, normal cystoscopy with copious flow of green urine bilaterally. Fluid Replacement, Intraop: 1,400 EBL in mLs: 200 Complications: None Known Condition: Good
--- NOTE | 2019-03-02 14:18 | OR ---
SURGEON: Amy Montemayor M.D. DATE OF PROCEDURE: 03/02/2019 PREOPERATIVE DIAGNOSIS: Menorrhagia with severe anemia. POSTOPERATIVE DIAGNOSIS: Menorrhagia with severe anemia. PROCEDURES: Laparoscopically assisted vaginal hysterectomy, bilateral salpingectomy, cystoscopy. PRIMARY SURGEON: Amy Montemayor MD. HOUSEHOLD PERSONAL ASSISTANT: Margarita Solorzano MD. ANESTHESIA: General endotracheal. FLUIDS: 1400 mL crystalloid. ESTIMATED BLOOD LOSS: 200 mL. FINDINGS: Bilateral fallopian tubes with prior Filshie clips. Otherwise, normal-appearing uterus, tubes, and ovaries. Upon cystoscopy, there was no evidence of any trauma to the bladder mucosa. There was copious flow of bright green urine from bilateral ureteral orifices after IV fluorescein was given. COMPLICATIONS: None known. DISPOSITION: Stable to recovery. BRIEF HISTORY: This is a 28-year-old female, G2, P2, who presents for hysterectomy. She has had a prior bilateral tubal ligation, and she has had severe menorrhagia with her hemoglobin upon presentation at 7.3. She was given IV iron and hemoglobin came up to 10.3 and on the day of surgery was actually over 12. She is feeling much better. Less dizziness and fatigue with her hemoglobin being better. She declines IUD. She declines an endometrial ablation. She desires to proceed with hysterectomy for management of her menorrhagia along with bilateral salpingectomy for risk reduction of ovarian cancer. Risks discussed including bleeding; infection; injury to bowel, bladder, blood vessels, or other organs; risk of thromboembolic event; risk of anesthesia; and risk of change in sexual function. She also understands that she will no longer be able to in anyway conceive children once her uterus is removed, and she accepts this. Additionally, she understands the risks of anesthesia and does desire to proceed. DESCRIPTION OF PROCEDURE: Prior to my procedure, Dr. Koroma did perform left breast biopsy, which is dictated as a completely separate procedure, but was performed under the same anesthetic. Once her incision was completely dressed, the abdomen was prepped with chlorhexidine and the perineum and vagina were prepped with Betadine in the usual fashion for laparoscopic surgery. A Zaman catheter was placed and backfilled with 30 mL of dilute indigo carmine and the abdomen and pelvis had been appropriately draped. An appropriate time-out was held. Bimanual examination revealed a midposition uterus and weighted speculum was placed in the vagina. The cervix was grasped with an Allis clamp and the ZUMI uterine manipulator was placed to the uterine fundus, which measured 10 cm. Once this was complete, attention was then turned to the abdomen. She had a fairly recent cholecystectomy. The prior vertical cholecystectomy scar inferior to the umbilicus was utilized. 4 mL of Marcaine was injected and the incision was made. Hemostats were used to identify the fascia, which was tagged with 0 Polysorb and the fascia was incised with Metzenbaum scissors. A finger was used to enter the peritoneal cavity. The peritoneum was smooth with no adhesions. Therefore, the Dwight port was placed, the balloon was filled, and the port was adjusted appropriately. The abdomen was insufflated with CO2 to develop an adequate pneumoperitoneum of 15 mmHg. The patient was placed in Trendelenburg position and the laparoscope was placed into the abdominal cavity. Two additional ports were placed 2 cm medial and cephalad from the anterior superior iliac spine on the right and the left. The ureter was identified on the right and the left and was deep in the pelvis well away from the field of dissection. The fimbria of the tube was then grasped and from the ovary using LigaSure and proceeding along the mesosalpinx the tubes were released. The LigaSure was then utilized to clamp, ligate, and cut the round ligament, entering the peritoneum anteriorly and posteriorly of the broad ligament, which were incised to develop an adequate bladder flap anteriorly and to provide adequate skeletonization of the uterine vessels posteriorly. This was repeated on the opposite side and the abdomen was then desufflated. The instruments were removed. The bladder was released and attention was then turned vaginally where the cervix was grasped with a Ruth tenaculum and circumscribed with electrocautery. The posterior cul-de-sac was entered sharply. A Boris-Auvard speculum was placed posteriorly. The anterior cul-de-sac was then entered sharply and a right-angle retractor was placed anteriorly. The uterosacral ligaments were cross clamped, cut, and ligated using a Roman ligature of 2-0 Polysorb, which was retained. The remaining pedicle of the broad ligament, which included the uterine vessels, was then clamped, cut, and ligated using a Roman ligature of 2-0 Polysorb. The uterus and tubes were then removed vaginally. The pedicles were carefully inspected and were hemostatic. The retained ligatures from the uterosacral ligaments bilaterally were ligated to the vaginal apices bilaterally. There was a small area of bleeding posterior to the left uterosacral ligament, which was clamped and ligated using a Roman ligature. This being completed, the pedicles appeared hemostatic and the vaginal mucosa was closed with a running suture of 0 Polysorb. A single figure- of-eight suture was placed in the midline for complete hemostasis. After the closure was complete, the catheter was then removed. IV fluorescein and Lasix had been given. Cystoscopy was performed using sterile water as the distending medium and there was excellent flow from bilateral ureteral orifices. There was also no evidence of any trauma to the bladder mucosa. This being complete, the catheter was again replaced. The vagina was inspected and was hemostatic. The abdomen was re-insufflated. The pelvis was carefully irrigated and inspected and was hemostatic at both 15 mmHg and 5 mmHg. The abdomen was then completely desufflated. The ports were removed and the fascia of the umbilical incision was reapproximated using 0 Polysorb and the skin was closed with running subcuticular suture of 3-0 Monocryl. Final sponge, needle, and instrument counts were reported as correct. There were no known complications. The patient was transferred to recovery in good condition. DAVID GREGG /[id number]
--- NOTE | 2019-03-02 18:49 | PCM.SN ---
- Free Text/Narrative Note: POD0 after LAVH,, recent emesis, complaint of pain in her back, dizzy when she got up AF VSS, Dressing intact, minimal shadowing Abdomen soft Ext tr edema. large urine output. discussed operative findings. She is currently in pain, will get ketorolac and Percocet then may consider trying to get up again. Continue with postop care.
[2019-03-02] MEDS: Ketorolac 30 MG/ML SDV IVPUSH SCH (18:51)
[2019-03-03] MEDS: Ketorolac 30 MG/ML SDV IVPUSH SCH ×3 (01:02→13:19)
[2019-03-03 07:31] LABS: CHLORIDE,CL 106 mmol/L (98-107); SODIUM,NA 140 mmol/L (136-145)
--- NOTE | 2019-03-03 09:18 | PCM.SURGPN ---
- General Info Date of Service: 03/03/19 Date of Surgery/Procedure: 03/02/19 POD#: 1 Admission Diagnosis/Problem: Menorrhagia Functional Status: Reports: Pain Controlled, Tolerating Diet (small amounts no emesis today. No flatus yet, experiencing some gas pain.), Ambulating. Denies: Urinating (catheter is still in) - Review of Systems General: Reports: No Symptoms HEENT: Reports: No Symptoms Pulmonary: Reports: No Symptoms Cardiovascular: Reports: No Symptoms Gastrointestinal: Reports: Other (b). Denies: Flatus, Nausea Genitourinary: Reports: No Symptoms Musculoskeletal: Reports: No Symptoms Skin: Reports: No Symptoms Neurological: Reports: No Symptoms Psychiatric: Reports: No Symptoms - Patient Data Vitals - Most Recent: Last Vital Signs Temp 36.9 C 03/03/19 07:26 Pulse 76 03/03/19 07:26 Resp 16 03/03/19 07:26 BP 126/89 03/03/19 07:26 Pulse Ox 97 03/03/19 07:26 Weight - Most Recent: 90.265 kg Lab Results Last 24 Hrs: Laboratory Results - last 24 hr 03/03/19 03/03/19 Range/Units 06:35 06:35 WBC 14.66 H (4.0-11.0) K/uL RBC 4.71 (4.30-5.90) M/uL Hgb 11.2 L (12.0-16.0) g/dL Hct 36.2 (36.0-46.0) % MCV 76.9 L (80.0-98.0) fL MCH 23.8 L (27.0-32.0) pg MCHC 30.9 L (31.0-37.0) g/dL Plt Count 269 (150-400) K/uL MPV 9.80 (7.40-12.00) fL Neut % (Auto) 80.0 (48.0-80.0) % Lymph % (Auto) 13.1 L (16.0-40.0) % Gregg % (Auto) 6.8 (0.0-15.0) % Eos % (Auto) 0.0 (0.0-7.0) % Baso % (Auto) 0.1 (0.0-1.5) % Neut # (Auto) 11.7 H (1.4-5.7) K/uL Lymph # (Auto) 1.9 (0.6-2.4) K/uL Gregg # (Auto) 1.0 H (0.0-0.8) K/uL Eos # (Auto) 0.0 (0.0-0.7) K/uL Baso # (Auto) 0.0 (0.0-0.1) K/uL Nucleated RBC % 0.0 /100WBC Nucleated RBCs # 0 K/uL Sodium 140 (136-145) mmol/L Potassium 4.7 (3.5-5.1) mmol/L Chloride 106 (98-107) mmol/L Carbon Dioxide 27.3 (21.0-32.0) mmol/L BUN 9 (7.0-18.0) mg/dL Creatinine 0.7 (0.6-1.0) mg/dL Est Cr Clr Drug Dosing 117.39 mL/min Estimated GFR (MDRD) > 60.0 ml/min Glucose 121 H (74-106) mg/dL Calcium 9.2 (8.5-10.1) mg/dL Med Orders - Current: Current Medications Ketorolac Tromethamine (Toradol) 30 mg IVPUSH Q6H [facility] Stop: 03/07/19 13:17 Last Admin: 03/03/19 06:39 Dose: 30 mg Morphine Sulfate (Morphine) 4 mg IVPUSH Q2H PRN PRN Reason: Pain (severe 7-10) Last Admin: 03/02/19 16:08 Dose: 4 mg Ondansetron HCl (Zofran) 4 mg IVPUSH ONETIME PRN PRN Reason: Nausea/Vomiting Ondansetron HCl (Zofran) 4 mg IVPUSH Q6H PRN PRN Reason: Nausea/Vomiting Last Admin: 03/02/19 18:29 Dose: 4 mg Oxycodone/Acetaminophen (Percocet 325-5 Mg) 1 tab PO Q4H PRN PRN Reason: Pain (moderate 4-6) Oxycodone/Acetaminophen (Percocet 325-5 Mg) 2 tab PO Q4H PRN PRN Reason: Pain (moderate 4-6) Promethazine HCl (Phenergan) 25 mg IM Q6H PRN PRN Reason: Nausea/Vomiting Scopolamine (Transderm-Scop) 1.5 mg TRDERM Q72H PRN PRN Reason: Nausea/Vomiting Last Admin: 03/02/19 09:33 Dose: 1.5 mg Discontinued Medications Bupivacaine HCl (Sensorcaine-Mpf 0.25%) Confirm Administered Dose 20 ml .ROUTE .STK-MED ONE Stop: 03/02/19 09:12 Bupivacaine HCl (Sensorcaine-Mpf 0.5%) Confirm Administered Dose 10 ml .ROUTE .STK-MED ONE Stop: 03/02/19 10:33 Cefazolin Sodium (Ancef) Confirm Administered Dose 2 gm .ROUTE .STK-MED ONE Stop: 03/02/19 10:49 Dexamethasone (Dexamethasone) Confirm Administered Dose 20 mg .ROUTE .STK-MED ONE Stop: 03/02/19 08:44 Fentanyl (Sublimaze) Confirm Administered Dose 100 mcg .ROUTE .STK-MED ONE Stop: 03/02/19 08:50 Fentanyl (Sublimaze) 50 - 100 mcg IVPUSH Q5M PRN PRN Reason: Pain (severe 7-10) Stop: 03/03/19 09:09 Fentanyl (Sublimaze) Confirm Administered Dose 100 mcg .ROUTE .STK-MED ONE Stop: 03/02/19 12:47 Fluorescein Sodium (Ak-Fluor) Confirm Administered Dose 5 ml .ROUTE .STK-MED ONE Stop: 03/02/19 09:11 Furosemide (Lasix) Confirm Administered Dose 40 mg .ROUTE .STK-MED ONE Stop: 03/02/19 12:40 Glycopyrrolate (Robinul) Confirm Administered Dose 0.2 mg .ROUTE .STK-MED ONE Stop: 03/02/19 12:36 Hydromorphone HCl (Dilaudid) 0.5 mg IVPUSH Q10M PRN PRN Reason: Pain (severe 7-10) Stop: 03/03/19 09:09 Hydromorphone HCl (Dilaudid) Confirm Administered Dose 2 mg .ROUTE .STK-MED ONE Stop: 03/02/19 11:48 Acetaminophen (Ofirmev) Confirm Administered Dose 100 mls @ as directed IV .STK- MED ONE Stop: 03/02/19 09:14 Ketorolac Tromethamine (Toradol) Confirm Administered Dose 30 mg .ROUTE .STK- MED ONE Stop: 03/02/19 08:44 Ketorolac Tromethamine (Toradol) Confirm Administered Dose 30 mg .ROUTE .STK- MED ONE Stop: 03/02/19 13:05 Ketorolac Tromethamine (Toradol) 30 mg IVPUSH ONETIME ONE Stop: 03/02/19 13:17 Lidocaine (Xylocaine-Mpf 2%) Confirm Administered Dose 5 ml .ROUTE .STK-MED ONE Stop: 03/02/19 08:44 Methylene Blue (Provayblue) Confirm Administered Dose 50 mg .ROUTE .ST-MED ONE Stop: 03/02/19 09:11 Midazolam HCl (Versed 1 Mg/Ml) Confirm Administered Dose 2 mg .ROUTE .ST-MED ONE Stop: 03/02/19 08:43 Neostigmine Methylsulfate (Neostigmine) Confirm Administered Dose 5 mg .ROUTE .STK-MED ONE Stop: 03/02/19 12:36 Octyl Cyanoacrylate (Dermabond Advance) Confirm Administered Dose 1 applic .ROUTE .[facility]-MED ONE Stop: 03/02/19 11:15 Ondansetron HCl (Zofran) Confirm Administered Dose 4 mg .ROUTE .ST-MED ONE Stop: 03/02/19 08:44 Phenylephrine HCl (Phenylephrine In Ns 100 Mcg/Ml) Confirm Administered Dose 1 mg .ROUTE .ST-MED ONE Stop: 03/02/19 11:15 Propofol (Diprivan 20 Ml) Confirm Administered Dose 200 mg .ROUTE .ST-MED ONE Stop: 03/02/19 08:43 Rocuronium [place] (Zemuron) Confirm Administered Dose 100 mg .ROUTE .ST-MED ONE Stop: 03/02/19 08:44 Succinylcholine Chloride (Succinylcholine Chloride) Confirm Administered Dose 200 mg .ROUTE .[facility]-MED ONE Stop: 03/02/19 08:44 - Exam Wound/Incisions: Dressing Dry and Intact General: Alert, Oriented HEENT: Pupils Equal Neck: Supple Lungs: Clear to Auscultation, Normal Respiratory Effort Cardiovascular: Regular Rate, Regular Rhythm GI/Abdominal Exam: Normal Bowel Sounds, Soft, Non-Tender, No Organomegaly, No Abnormal Bruit, No Mass. No: No Distention (somewhat distended) Extremities: Normal Inspection, Non-Tender, No Pedal Edema Skin: Warm, Dry, Intact Neurological: No New Focal Deficit Psy/Mental Status: Alert, Normal Affect, Normal Mood - Problem List & Annotations (1) Menorrhagia with regular cycle SNOMED Code(s): 922875834 Code(s): N92.0 - EXCESSIVE AND FREQUENT MENSTRUATION WITH REGULAR CYCLE Status: Acute Current Visit: Yes - Problem List Review Problem List Initiated/Reviewed/Updated: Yes - My Orders Last 24 Hours: Active Orders 24 hr Category Date Time Status Patient Status [ADT] Routine ADT 03/02/19 13:17 Active Antiembolic Devices [RC] PER UNIT ROUTINE Care 03/02/19 13:17 Active Bradycardia-Neuroaxis [employer] [RC] ROUTINE Care 03/02/19 09:09 Active Bradycardia-Neuroaxis [employer] [RC] ROUTINE Care 03/02/19 09:09 Active Hypertension-Neuroaxis [employer] [RC] ROUTINE Care 03/02/19 09:09 Active Hypertension-Neuroaxis [employer] [RC] ROUTINE Care 03/02/19 09:09 Active Hypotension-Neuroaxis [employer] [RC] ROUTINE Care 03/02/19 09:09 Active Hypotension-Neuroaxis [employer] [RC] ROUTINE Care 03/02/19 09:09 Active Notify Provider Intake and Out [RC] ASDIRECTED Care 03/02/19 13:17 Active Notify Provider Vital Signs [RC] ASDIRECTED Care 03/02/19 13:17 Active Oxygen Therapy [RC] ASDIRECTED Care 03/02/19 13:17 Active RT Incentive Spirometry [RC] Q2HWA Care 03/02/19 13:17 Active Ready for Discharge [RC] PER UNIT ROUTINE Care 03/03/19 08:05 Active Up With Assistance [RC] PER UNIT ROUTINE Care 03/02/19 13:17 Active Up ad Mary [RC] PER UNIT ROUTINE Care 03/02/19 13:17 Active Urinary Catheter Removal [RC] Per Unit Routine Care 03/02/19 13:17 Active Vital Signs [RC] PER UNIT ROUTINE Care 03/02/19 13:17 Active Regular Diet [DIET] Diet 03/02/19 Dinner Active Acetaminophen/oxyCODONE [Percocet 325-5 MG] Med 03/02/19 13:16 Active 1 tab PO Q4H PRN Acetaminophen/oxyCODONE [Percocet 325-5 MG] Med 03/02/19 13:16 Active 2 tab PO Q4H PRN Ketorolac [Toradol] Med 03/02/19 13:30 Active 30 mg IVPUSH Q6H Morphine Med 03/02/19 13:16 Active 4 mg IVPUSH Q2H PRN Ondansetron [Zofran] Med 03/02/19 09:09 Active 4 mg IVPUSH ONETIME PRN Ondansetron [Zofran] Med 03/02/19 13:16 Active 4 mg IVPUSH Q6H PRN Promethazine [Phenergan] Med 03/02/19 13:16 Active 25 mg IM Q6H PRN Scopolamine [Transderm-Scop] Med 03/02/19 09:09 Active 1.5 mg TRDERM Q72H PRN Peripheral IV Discontinue [OM.PC] Routine Oth 03/02/19 13:17 Ordered Sequential Compression Device [OM.PC] Per Unit Routine Oth 03/02/19 13:17 Ordered Resuscitation Status Routine Resus Stat 03/02/19 13:16 Ordered Medication Orders Ketorolac Tromethamine (Toradol) 30 mg IVPUSH Q6H [facility] Stop: 03/07/19 13:17 Last Admin: 03/03/19 06:39 Dose: 30 mg Admin: 03/03/19 01:02 Dose: 30 mg Admin: 03/02/19 18:51 Dose: 30 mg Morphine Sulfate (Morphine) 4 mg IVPUSH Q2H PRN PRN Reason: Pain (severe 7-10) Last Admin: 03/02/19 16:08 Dose: 4 mg Ondansetron HCl (Zofran) 4 mg IVPUSH ONETIME PRN PRN Reason: Nausea/Vomiting Ondansetron HCl (Zofran) 4 mg IVPUSH Q6H PRN PRN Reason: Nausea/Vomiting Last Admin: 03/02/19 18:29 Dose: 4 mg Oxycodone/Acetaminophen (Percocet 325-5 Mg) 1 tab PO Q4H PRN PRN Reason: Pain (moderate 4-6) Oxycodone/Acetaminophen (Percocet 325-5 Mg) 2 tab PO Q4H PRN PRN Reason: Pain (moderate 4-6) Promethazine HCl (Phenergan) 25 mg IM Q6H PRN PRN Reason: Nausea/Vomiting Scopolamine (Transderm-Scop) 1.5 mg TRDERM Q72H PRN PRN Reason: Nausea/Vomiting Last Admin: 03/02/19 09:33 Dose: 1.5 mg - Assessment Assessment (Free Text/Narrative):: POD#1 after LAVH bilateral salpingectomy, vital stable, hemoglobin is normal for postop state and recent anemia. She is tolerating diet, but no flatus yet. Catheter still in place. - Plan Plan (Free Text/Narrative):: Remove Zaman, ambulate, try Simethicone and dulcolax, if gas pain resolved then home later today.
[2019-03-03] MEDS ORDERED: Bisacodyl 10 MG Supp RECTAL ONE (09:19)
[2019-03-03] MEDS: Simethicone 80 MG Tab.Chew PO PRN ×2 (10:11→14:28)
== END 2019-03-03 18:30 | disposition home or self-care (01) ==
LOC: MW.SDS 08:01 → MW.OB 15:05 → MW.SDS 03-03 18:30
PROVIDERS: ATTEND Obstetrics & Gynecology
DX: D24.2 Benign neoplasm of left breast (principal); D50.0 Iron deficiency anemia secondary to blood loss (chronic); N92.0 Excessive and frequent menstruation with regular cycle; F17.210 Nicotine dependence, cigarettes, uncomplicated; Z98.51 Tubal ligation status; Z79.899 Other long term (current) drug therapy
CPT/HCPCS: 19301; 36415; 58552; 80048; 84703; 85014; 85018; 85025; 85027; 86850; 86900; 86901; 88305; 88307; A9270; J0131; J0330; J0690; J1100; J1170; J1885; J1940; J2001; J2250; J2270; J2370; J2405; J2704; J3010; J3490; 00400

== ENCOUNTER 2021-05-08 19:14 | Emergency (ER) | payer SELFPAY ==
--- NOTE | 2021-05-08 20:26 | CR ---
INDICATION: Foot injury COMPARISON: none TECHNIQUE: Three-view left foot FINDINGS: The bones are anatomically aligned. There is no evidence of fracture, erosion or intrinsic bone lesion. The soft tissues appear normal. IMPRESSION: No fracture identified. Dictated by Claude Gonzalez MD @ 05/08/2021 8:23:[address] Claude Gonzalez @ May 08 2021 8:23PM
--- NOTE | 2021-05-08 20:46 | EDM.PDOC ---
ED HPI GENERAL MEDICAL PROBLEM - General Chief Complaint: Lower Extremity Injury/Pain Stated Complaint: LT FOOT PAIN Time Seen by Provider: 05/08/21 20:41 Source of Information: Reports: Patient History Limitations: Reports: No Limitations - History of Present Illness INITIAL COMMENTS - FREE TEXT/NARRATIVE: HISTORY AND PHYSICAL: History of present illness: Patient is a 30-year-old female who presents to the emergency room with complaints of left foot pain x2 weeks. She states 2 weeks ago her dog had jumped on her foot causing pain. She states over the past 2 weeks it has progressively gotten worse. Describes the pain as sharp and throbbing across the midfoot. Denies any numbness, tingling, saddle paresthesia or weakness of the extremity. Patient denies any fever, chills, headache, change in vision, syncope or near syncope. Denies any chest pain, back pain, shortness of breath or cough. Denies GI or symptoms. Review of systems: As per history of present illness and below otherwise all systems reviewed and negative. Past medical history: As per history of present illness and as reviewed below otherwise noncontributory. Surgical history: As per history of present illness and as reviewed below otherwise noncontributory. Social history: See social history for further information Family history: As per history of present illness and as reviewed below otherwise noncontributory. Physical exam: General: Well developed and well nourished 30-year-old female. Alert and orientated x 3. Nontoxic in appearance and in no acute distress. Vital signs are stable and have been reviewed by me. Nursing notes were reviewed. HEENT: Atraumatic, normocephalic, pupils equal and reactive bilaterally, negative for conjunctival pallor or scleral icterus, mucous membranes moist, trachea midline. No drooling or trismus noted. No meningeal signs. No hot potato voice noted. Lungs: Clear to auscultation bilaterally. Normal work of breathing, no accessory muscles used. Heart: S1S2, regular rate and rhythm. No peripheral edema Abdomen: Soft, nondistended, nontender. Skin: Intact, warm, dry. No lesions or rashes noted. Hematologic: No petechiae or purpra. Mucosa appropriate color and normal nail bed color and refill. Extremities: Moves all extremities per self without difficulty or deficits, pain with palpation of the mid foot both volar and plantar aspect, strong pedal and pretibial pulses, negative for cords or calf pain. Cap refill less than 3 seconds. +CMS. Neurovascular unremarkable. Neuro: Awake, alert, oriented. Cranial nerves II through XII unremarkable. Cerebellum unremarkable. Motor and sensory unremarkable throughout. Exam nonfocal. Psychiatric: Mood and affect are appropriate. Normal thought process. Answering questions appropriately. Notes: *This patient was seen and evaluated during the 2019 SARS-CoV-2 novel coronavirus pandemic period. Community viral transmission is ongoing at time of this encounter and the emergency department is operating under pandemic response procedures. Physical exam is unremarkable. She does have some tenderness with palpation although there is no obvious soft tissue swelling or injury. Strong pedal pulses. X-ray does not show any acute findings. I did offer her crutches and Juan Luis wrap. She states she feels this is "going overboard". She has been trying Tylenol and ibuprofen without much relief, although she does not want anything stronger. I will give her a prescription for diclofenac. Encouraged her follow-up with podiatry. I have talked with the patient about today's findings, in addition to providing specific details for plan of care. Reassessment at the time of disposition demonstrates that the patient is in no acute distress. The patient is stable for discharge, counseling was provided and we discussed in great detail signs and symptoms that would prompt them to return to the Emergency Department. Medication, follow up and supportive care measures were reviewed and discussed. Voices understanding and is agreeable to plan of care. Denies any further questions or concerns at this time. Diagnostics: Left foot x-ray Therapeutics: Juan Luis wrap Prescription: Diclofenac Impression: Crush injury left foot Plan: 1. You were evaluated today on an emergent basis. Your x-ray shows no fracture. Rest, ice, elevate the extremity as able. 2. You can alternate Tylenol and ibuprofen as needed for pain and fever management. 3. We encourage you to follow up with your primary care provider and/or recommended specialist in the next few days for re-evaluation and further care/management. 4. If your symptoms should worsen, new symptoms develop or any of the signs and symptoms we discussed should arise please return to the emergency room or call 911 (if needed). Definitive disposition and diagnosis as appropriate pending reevaluation and review of above. left foot Pain Score (Numeric/FACES): 6 - Related Data Allergies Allergy/AdvReac Type Severity Reaction Status Date / Time No Known Allergies Allergy Verified 05/08/21 20:07 Home Meds: Home Meds Diclofenac Sodium [Voltaren] 75 mg PO BIDMEALS PRN #30 tab.cr 05/08/21 [Rx] Past Medical History - Past Health History Medical/Surgical History: Denies Medical/Surgical History HEENT History: Reports: None Cardiovascular History: Reports: None Respiratory History: Reports: None Gastrointestinal History: Reports: Cholelithiasis Other Gastrointestinal History: symptomatic cholelithiasis Genitourinary History: Reports: None [employer]ED [employer] History: Reports: Musculoskeletal History: Reports: None Neurological History: Reports: None Psychiatric History: Reports: None Endocrine/Metabolic History: Reports: Obesity/BMI 30+ Hematologic History: Reports: Anemia, Blood Transfusion(s) Immunologic History: Reports: None Oncologic (Cancer) History: Reports: None Dermatologic History: Reports: None - Infectious Disease History Infectious Disease History: Reports: Chicken Pox, Novel Coronavirus - Past Surgical History Head Surgeries/Procedures: Reports: None HEENT Surgical History: Reports: None Cardiovascular Surgical History: Reports: None Respiratory Surgical History: Reports: None GI Surgical History: Reports: Cholecystectomy Female Surgical History: Reports: Section, Tubal Ligation Endocrine Surgical History: Reports: None Neurological Surgical History: Reports: None Musculoskeletal Surgical History: Reports: None Oncologic Surgical History: Reports: None Dermatological Surgical History: Reports: None Social & Family History - Family History Family Medical History: No Pertinent Family History - Tobacco Use Tobacco Use Status *Q: Never Tobacco User Second Hand Smoke Exposure: No - Caffeine Use Caffeine Use: Reports: None - Recreational Drug Use Recreational Drug Use: No Review of Systems - Review of Systems Review Of Systems: Comprehensive ROS is negative, except as noted in HPI. ED EXAM, GENERAL - Physical Exam Exam: See Below (See dictation) Course - Vital Signs Last Recorded V/S: Last Vital Signs Temp 97.0 F 05/08/21 20:03 Pulse 82 05/08/21 20:03 Resp 18 05/08/21 20:03 BP 127/91 H 05/08/21 20:03 Pulse Ox 98 05/08/21 20:03 - Orders/Labs/Meds Orders: Active Orders 24 hr Category Date Time Status DME for Discharge [COMM] Stat Oth 05/08/21 20:47 Ordered Departure - Departure Time of Disposition: 20:55 Disposition: Home, Self-Care 01 Clinical Impression: Crush injury of left foot Qualifiers: Encounter type: initial encounter Qualified Code(s): S97.82XA - Crushing injury of left foot, initial encounter - Discharge Information Prescriptions: Diclofenac Sodium [Voltaren] 75 mg PO BIDMEALS PRN #30 tab.cr PRN Reason: Pain Instructions: Crush Injury of the Foot, [id number] Referrals: Felipa Gonzalez NP [Primary Care Provider] - Forms: ED Department Discharge Additional Instructions: The following information is given to patients seen in the emergency department who are being discharged to home. This information is to outline your options for follow-up care. We provide all patients seen in our emergency department with a follow-up referral. The need for follow-up, as well as the timing and circumstances, are variable depending upon the specifics of your emergency department visit. If you don't have a primary care physician on staff, we will provide you with a referral. We always advise you to contact your personal physician following an emergency department visit to inform them of the circumstance of the visit and for follow-up with them and/or the need for any referrals to a consulting specialist. The emergency department will also refer you to a specialist when appropriate. This referral assures that you have the opportunity for follow-up care with a specialist. All of these measure are taken in an effort to provide you with optimal care, which includes your follow-up. Under all circumstances we always encourage you to contact your private physician who remains a resource for coordinating your care. When calling for follow-up care, please make the office aware that this follow-up is from your recent emergency room visit. If for any reason you are refused follow-up, please contact the [facility] Emergency Department at and asked to speak to the emergency department charge nurse. [facility] [address] [place] [address] [id number] [address] Thank you for choosing the [facility] emergency department in [place] for your medical needs today. It was a pleasure caring for you. Today you were seen in the emergency department for foot injury 1. You were evaluated today on an emergent basis. Your x-ray shows no fracture. Rest, ice, elevate the extremity as able. 2. You can alternate Tylenol and ibuprofen as needed for pain and fever management. 3. We encourage you to follow up with Dr Mcmahon (podiatry) in the next few days for re-evaluation and further care/management. 4. If your symptoms should worsen, new symptoms develop or any of the signs and symptoms we discussed should arise please return to the emergency room or call 911 (if needed). Sepsis Event Note (ED) - Evaluation Sepsis Screening Result: No Definite Risk - Focused Exam Vital Signs: Vital Signs Temp Pulse Resp BP Pulse Ox 05/08/21 20:03 97.0 F 82 18 127/91 H 98 - My Orders Last 24 Hours: My Active Orders 05/08/21 20:47 DME for Discharge [COMM] Stat - Assessment/Plan Last 24 Hours: My Active Orders 05/08/21 20:47 DME for Discharge [COMM] Stat
== END 2021-05-08 21:10 | disposition home or self-care (01) ==
LOC: MW.ED 19:14
DX: S97.82XA Crushing injury of left foot, initial encounter (principal); E66.9 Obesity, unspecified; Z68.34 Body mass index [BMI] 34.0-34.9, adult; W54.1XXA Struck by dog, initial encounter
CPT/HCPCS: 73630-26-LT; 73630-LT; 99283-25